=== PATIENT | female | born 1965 | race Caucasian/White ===

== ENCOUNTER 2020-10-02 18:07 | Emergency (ER) | payer OTHER, MEDICAID ==
[~2020-10-02] VITALS: Ht 172.7 cm; Wt 58.1 kg
[2020-10-02] MEDS ORDERED: DEPAKOTE 250MG250 M1 PO ×2 (18:13)
[2020-10-02 20:34] LABS: URINE BLOOD 2+ (Negative); URINE CLARITY CLEAR; URINE COLOR YELLOW; URINE GLUCOSE-RANDOM NEGATIVE (Negative); URINE KETONES TRACE (Negative); URINE LEUKOCYTES-REFLEX TRACE (Negative); URINE NITRITE-REFLEX NEGATIVE (Negative); URINE PROTEIN TRACE (Negative); URINE UROBILINOGEN 0.2 E.U./dl (0.2-1.0)
[2020-10-02 20:36] LABS: ICTOTEST (BILI CONFIRMATORY) Negative (Negative); URINE BILIRUBIN 1+ (Negative)
[2020-10-02 20:51] LABS: AMP/METHAMP POSITIVE (Negative); BARBITURATES Negative (Negative); BENZODIAZEPINES Negative (Negative); COCAINE Negative (Negative); METHADONE Negative (Negative); OPIATES Negative (Negative); PCP Negative (Negative); THC Negative (Negative)
[2020-10-02 20:52] LABS: HYALINE CASTS 4-10 Moderate /LPF (None Seen); MUCUS 0-3 Light strn/LPF (None Seen)
[2020-10-02 20:53] LABS: SQUAMOUS 0-3 Few /LPF (0-3); URINE WBC-REFLEX 0-5 Rare /HPF (0-5)
[2020-10-02 20:54] LABS: URINE RBC 3-10 Few /HPF (0-2)
[2020-10-02 20:55] LABS: BACTERIA-REFLEX None Seen /HPF (None Seen); CALCIUM OXALATE 0-3 Few /LPF (None Seen)
[2020-10-02 21:12] VITALS: BP 136/94
--- NOTE | 2020-10-03 16:14 | EKG ---
[place] [address] ELECTROCARDIOGRAM REPORT Name: BROCK ESCOBEDO Room: [facility]#: [id number] Admission: 10/02/20 Attend Phys: Discharge: 10/02/20 Date of : 63 Date of Service: 10/02/20 190 Report #: [id number] THIS REPORT FOR: //name// [facility] ED Test Date: 2020-10-02 Test Time: 19:07:28 Pat Name: BROCK ESCOBEDO Department: Room: Gender: Residential Leasing Agent: CRISPIN : 1965 Requested By: Salome Herrera Order Number: [id number] MD: Niels Macias Measurements Intervals [place] Rate: 88 P: 81 CT: 185 QRS: 63 QRSD: 95 T: 66 QT: 441 QTc: 534 Interpretive Statements Sinus rhythm Borderline abnrm T, anterolateral leads Prolonged QT interval No previous ECG available for comparison Electronically Signed On 10-03-2020 16:13:51 CDT by Niels Macias [email or web address] <ELECTRONICALLY SIGNED> By: Niels Macias MD, [facility] 10/03/20 1613 06 06 Niels Macias MD, [facility] /EPI
== END 2020-10-02 21:14 | disposition home or self-care (01) ==
LOC: M.ERS 18:07
PROVIDERS: Personal Emergency Response Attendant
DX: N39.0 Urinary tract infection, site not specified (principal); I10 Essential (primary) hypertension; I25.2 Old myocardial infarction; Z87.442 Personal history of urinary calculi; Z79.899 Other long term (current) drug therapy

== ENCOUNTER 2020-10-02 23:12 | Emergency (ER) | payer OTHER, MEDICAID ==
[~2020-10-02] VITALS: Ht 172.7 cm; Wt 59.0 kg
[~2020-10-02 23:12] MED LIST: DEPAKOTE 250MG250 M1 PO
[2020-10-03 01:49] VITALS: BP 122/85
== END 2020-10-03 01:50 ==
LOC: M.ERS 23:12
DX: N20.0 Calculus of kidney (principal); I10 Essential (primary) hypertension; I25.2 Old myocardial infarction